=== PATIENT | male | born 1985 | race Caucasian/White ===

== ENCOUNTER 2021-09-06 17:24 | Emergency (ER) | payer OTHER ==
[~2021-09-06 17:24] MED LIST: NORCO 7.5-3251 EACH PO
[2021-09-06] MEDS ORDERED: SILVADENE CREAM20 GM TOP (17:44)
[2021-09-06] MEDS ORDERED: CEPHALEXIN500 MG PO (17:44)
== END 2021-09-06 18:07 | disposition home or self-care (01) ==
LOC: ER1 17:24
DX: T22.212A Burn of second degree of left forearm, initial encounter (principal); Z23 Encounter for immunization; X08.8XXA Exposure to other specified smoke, fire and flames, initial encounter; F17.200 Nicotine dependence, unspecified, uncomplicated
CPT/HCPCS: 16020; 90714; 99283